=== PATIENT | female | born 1975 | race Caucasian/White ===

== ENCOUNTER 2024-10-13 23:34 | Observation (INO) ==
[2024-10-13] MEDS ORDERED: IOPAMIDOL 100 ML BOTTLE IV ONE (23:35)
[2024-10-14 00:04] LABS: Basophils # (Auto) 0.02 K/mcL (0.00-0.30); Basophils % (Auto) 0.2 % (0.0-2.0); Eosinophils # (Auto) 0.05 K/mcL (0.00-0.70); Eosinophils % (Auto) 0.4 % (0.0-7.0); Hematocrit 42.9 % (34.1-44.9); Hemoglobin 14.7 g/dL (11.2-15.7); Lymphocytes # (Auto) 1.91 K/mcL (1.50-4.80); Lymphocytes % (Auto) 14.9 % (15.5-49.0); Mean Corpuscular HGB Conc 34.3 g/dL (31.0-36.0); Monocytes # (Auto) 0.76 K/mcL (0.10-0.90); Monocytes % (Auto) 5.9 % (1.0-12.0); Neutrophils % (Auto) 78.4 % (38.0-78.0); Platelet Count 281 K/mcL (140-440); RBC 4.48 M/mcL (3.59-5.38); WBC 12.8 K/mcL (4.5-11.0)
[2024-10-14] MEDS: diphenhydrAMINE 50 MG/ML VIAL IV ONE (00:08)
[2024-10-14] MEDS: FAMOTIDINE/PF 20 MG/2 ML VIAL IV ONE (00:08)
[2024-10-14] MEDS: 0.9 % SODIUM CHLORIDE 1,000 ML IV ONE (00:08)
[2024-10-14] MEDS: ONDANSETRON 4 MG/2 ML VIAL IV ONE ×2 (00:12→01:25)
[2024-10-14 00:18] LABS: HCG,Serum Negative
[2024-10-14] MEDS: ACETAMINOPHEN 1,000 MG/100 ML BAG IV ONE (00:19)
[2024-10-14 00:37] LABS: ALT/SGPT 14 U/L (<40); AST/SGOT 15 U/L (<32); Albumin 4.4 gm/dL (3.2-5.2); Albumin/Globulin Ratio 1.6 (1.0-2.3); Alkaline Phosphatase 51 U/L (39-117); Anion Gap 15.0 (8.0-16.0); Bilirubin,Total 1.0 mg/dL (0.1-1.0); Blood Urea Nitrogen 16 mg/dL (6-20); Calcium 9.7 mg/dL (8.6-10.4); Carbon Dioxide 23 mmol/L (22-30); Chloride 102 mmol/L (96-108); Globulin 2.8 gm/dL (2.2-3.7); Glucose 133 mg/dL (70-105); Potassium 3.2 mmol/L (3.3-5.1); Sodium 140 mmol/L (133-145)
[2024-10-14] MEDS: fentaNYL 100 MCG/2 ML VIAL IV ONE (01:25)
[2024-10-14 02:14] LABS: Bilirubin,Urine Negative (Negative); Color,Urine Yellow; Glucose,Urine (UA) Negative (Negative); Ketones,Urine 80 mg/dL (Negative); Leukocyte Esterase,Urine Negative /uL (Negative); PH,Urine 8.0 (5.0-9.0); Protein,Urine Negative (Negative); Specific Gravity,Urine 1.020 (1.000-1.035); Urine Amorphous Crystals FEW /hpf; Urobilinogen,Urine Normal
[2024-10-14] MEDS: HYDROmorphone 0.5 MG/0.5 ML SYRINGE IV PRN (03:06)
[2024-10-14] MEDS: 0.9 % SODIUM CHLORIDE 1,000 ML IV SCH (03:07)
[2024-10-14] MEDS: PIPERACILLIN SODIUM/TAZOBACTAM 3.375 GM in DEXTROSE 5% IN WATER 50 ML IV ONE (03:07)
[2024-10-14] MEDS: ONDANSETRON 4 MG/2 ML VIAL IV PRN (07:43)
[2024-10-14 08:04] LABS: Hematocrit 42.9 % (34.1-44.9); Hemoglobin 14.6 g/dL (11.2-15.7); Mean Corpuscular HGB Conc 34.0 g/dL (31.0-36.0); Platelet Count 273 K/mcL (140-440); RBC 4.49 M/mcL (3.59-5.38); WBC 12.6 K/mcL (4.5-11.0)
[2024-10-14 09:16] LABS: ALT/SGPT 14 U/L (<40); AST/SGOT 19 U/L (<32); Albumin 4.0 gm/dL (3.2-5.2); Albumin/Globulin Ratio 1.5 (1.0-2.3); Alkaline Phosphatase 47 U/L (39-117); Anion Gap 10.0 (8.0-16.0); Bilirubin,Total 1.3 mg/dL (0.1-1.0); Blood Urea Nitrogen 12 mg/dL (6-20); Calcium 8.6 mg/dL (8.6-10.4); Carbon Dioxide 21 mmol/L (22-30); Chloride 105 mmol/L (96-108); Globulin 2.6 gm/dL (2.2-3.7); Glucose 167 mg/dL (70-105); Potassium 3.8 mmol/L (3.3-5.1); Sodium 136 mmol/L (133-145)
[2024-10-14] MEDS: DEXTROSE 5%-LR 1,000 ML IV SCH (10:57)
[2024-10-14] MEDS: PIPERACILLIN SODIUM/TAZOBACTAM 4.5 GM in DEXTROSE 5% IN WATER 50 ML IV ONE (11:24)
[2024-10-14] MEDS: PIPERACILLIN SODIUM/TAZOBACTAM 4.5 GM in DEXTROSE 5% IN WATER 100 ML IV SCH (15:05)
[2024-10-14] MEDS: diphenhydrAMINE 50 MG/ML VIAL IV PRN (22:08)
[2024-10-14] MEDS: PANTOPRAZOLE 40 MG VIAL IV SCH (22:08)
[2024-10-15 06:28] LABS: Hematocrit 35.7 % (34.1-44.9); Hemoglobin 11.9 g/dL (11.2-15.7); Mean Corpuscular HGB Conc 33.3 g/dL (31.0-36.0); Platelet Count 229 K/mcL (140-440); RBC 3.66 M/mcL (3.59-5.38); WBC 14.6 K/mcL (4.5-11.0)
[2024-10-15 07:55] LABS: ALT/SGPT 15 U/L (<40); AST/SGOT 16 U/L (<32); Albumin 3.5 gm/dL (3.2-5.2); Albumin/Globulin Ratio 1.7 (1.0-2.3); Alkaline Phosphatase 37 U/L (39-117); Anion Gap 13.0 (8.0-16.0); Bilirubin,Total 1.1 mg/dL (0.1-1.0); Blood Urea Nitrogen 8 mg/dL (6-20); Calcium 8.3 mg/dL (8.6-10.4); Carbon Dioxide 22 mmol/L (22-30); Chloride 106 mmol/L (96-108); Globulin 2.1 gm/dL (2.2-3.7); Glucose 181 mg/dL (70-105); Potassium 3.3 mmol/L (3.3-5.1); Sodium 141 mmol/L (133-145)
[2024-10-15] MEDS ORDERED: PROPOFOL 200 MG/20 ML VIAL IV ONE (09:09)
[2024-10-15] MEDS ORDERED: MIDAZOLAM 2 MG/2 ML VIAL ONE (09:09)
[2024-10-15] MEDS ORDERED: DEXAMETHASONE 10 MG/ML VIAL ONE (09:15)
[2024-10-15] MEDS ORDERED: LIDOCAINE 2% PF 5 ML VIAL ONE (09:15)
[2024-10-15] MEDS ORDERED: ONDANSETRON 4 MG/2 ML VIAL ONE (09:15)
[2024-10-15] MEDS ORDERED: TRANEXAMIC ACID 1,000 MG/10 ML VIAL ONE (09:15)
[2024-10-15] MEDS ORDERED: GLYCOPYRROLATE 0.2 MG/ML VIAL IV ONE (09:15)
[2024-10-15] MEDS ORDERED: ROCURONIUM 10 MG/ML ML IV ONE ×2 (09:15→10:39)
[2024-10-15] MEDS ORDERED: KETOROLAC 30 MG/ML VIAL ONE (09:15)
[2024-10-15] MEDS: SCOPOLAMINE 1 PATCH PATCH TOPICAL ONE (09:31)
[2024-10-15] MEDS: BUPIVACAINE W/EPI 0.25% 50 ML VIAL IJ ONE (10:10)
[2024-10-15] MEDS ORDERED: HYDROmorphone 0.5 MG/0.5 ML SYRINGE ONE ×2 (10:18→10:22)
[2024-10-15] MEDS ORDERED: fentaNYL 100 MCG/2 ML VIAL ONE (10:30)
[2024-10-15] MEDS ORDERED: ONDANSETRON 4 MG/2 ML VIAL IV PRN (11:19)
[2024-10-15] MEDS ORDERED: diphenhydrAMINE 50 MG/ML VIAL IV PRN (11:19)
[2024-10-15] MEDS ORDERED: fentaNYL 100 MCG/2 ML VIAL IV PRN (11:19)
[2024-10-15] MEDS ORDERED: HYDROmorphone 0.5 MG/0.5 ML SYRINGE IV PRN (11:19)
[2024-10-15] MEDS ORDERED: NALOXONE HCL 0.4 MG/ML VIAL IV PRN (11:19)
[2024-10-15] MEDS ORDERED: IPRATROPIUM/ALBUTEROL 3 ML AMPUL.NEB NEB PRN (11:19)
[2024-10-15] MEDS ORDERED: LACTATED RINGERS 250 ML IV PRN (11:19)
[2024-10-15] MEDS ORDERED: MEPERIDINE 25 MG/ML VIAL IV PRN (11:19)
[2024-10-15] MEDS ORDERED: SUGAMMADEX SODIUM 200 MG/2 ML VIAL IV ONE (11:53)
[2024-10-15] MEDS: ACETAMINOPHEN 1,000 MG/100 ML BAG IV ONE (12:12)
[2024-10-15] MEDS: METHOCARBAMOL 1,000 MG/10 ML VIAL IV PRN (12:30)
[2024-10-15] MEDS: LACTATED RINGERS 1,000 ML IV SCH (13:24)
[2024-10-15] MEDS: ACETAMINOPHEN 650 MG/65 ML BAG IV SCH (14:37)
[2024-10-16 08:10] VITALS: TEMP 97.5
[2024-10-16 11:18] VITALS: O2SAT 100
[2024-10-16] MEDS: SPIRONOLACTONE 25 MG TABLET PO SCH (12:28)
[2024-10-16] MEDS: DEXTROSE 5%-LR 1,000 ML IV SCH (12:28)
[2024-10-17] MEDS ORDERED: OMEPRAZOLE 20 MG CAPSULE PO SCH (07:30)
[2024-10-17] MEDS ORDERED: HYDROCHLOROTHIAZIDE 25 MG TABLET PO SCH (09:00)
== END 2024-10-16 15:32 | disposition home or self-care (01) ==
LOC: MEDSUR 23:34 → ED 23:34 → MEDSUR 10-14 03:03
PROVIDERS: ADMIT Surgery Surgical Critical Care; ATTEND Surgery Surgical Critical Care